=== PATIENT | female | born 1990 | race Caucasian/White ===

== ENCOUNTER 2023-02-22 20:51 | Inpatient (IN) | payer OTHER ==
[~2023-02-22] VITALS: Ht 160 cm; Wt 73.9 kg
[2023-02-22] MEDS ORDERED: LEVOTHYROXINE25 MCG PO ×2 (22:51→22:56)
[2023-02-22] MEDS ORDERED: PRENATAL TABLE1 EAC1 PO (22:53)
[2023-02-22] MEDS ORDERED: MAGNESIUM400 MG PO (22:55)
[2023-02-22] MEDS ORDERED: COLACE100 MG PO (22:56)
[2023-02-22] MEDS ORDERED: MIRALAX17 GM PO (22:56)
[2023-02-22] MEDS ORDERED: CHILDREN'S ASPI81 MG PO (22:57)
[2023-02-22] MEDS ORDERED: INTEGRA CAPSUL1 EACH PO (22:57)
== END 2023-02-25 17:56 | disposition home or self-care (01) | DRG 807 ==
LOC: LDR 20:51 → OB/GYN 02-24 08:53
PROVIDERS: ADMIT Specialist; ATTEND Specialist
PROC: 4A1HXCZ Monitoring of Products of Conception, Cardiac Rate, External Approach (ICD-10-PCS; 2023-02-22)
PROC: 10E0XZZ Delivery of Products of Conception, External Approach (ICD-10-PCS; principal; 2023-02-23)
PROC: 0W8NXZZ Division of Female Perineum, External Approach (ICD-10-PCS; 2023-02-23)
DX: O80 Encounter for full-term uncomplicated delivery (principal); Z37.0 Single live birth; Z3A.39 39 weeks gestation of pregnancy; Z20.822 Contact with and (suspected) exposure to COVID-19

== ENCOUNTER 2025-01-30 09:19 | Outpatient (CLI) | payer OTHER ==
[~2025-01-30 09:19] MED LIST: CHILDREN'S ASPI81 MG PO; COLACE100 MG PO; INTEGRA CAPSUL1 EACH PO; LEVOTHYROXINE25 MCG PO; MAGNESIUM400 MG PO; MIRALAX17 GM PO; PRENATAL TABLE1 EAC1 PO
== END 2025-01-30 09:40 | disposition home or self-care (01) ==
LOC: TOM 09:19
DX: D25.9 Leiomyoma of uterus, unspecified (principal)